=== PATIENT | female | born 1995 | race Hispanic/Latino ===

== ENCOUNTER 2018-12-01 11:45 | Emergency (ER) | payer SELFPAY ==
[2018-12-01 12:29] VITALS: BP 110/73
--- NOTE | 2018-12-01 12:29 | Event Note ---
ED Screening Note ED Screening Note: pt presents with substernal CP that began a week ago hurts with laughing, coughing, movement no SOB LNMP: november 16 non smoker This initial assessment/diagnostic orders/clinical plan/treatment(s) is/are subject to change based on patients health status, clinical progression and re- assessment by fellow clinical providers in the ED. Further treatment and workup at subsequent clinical providers discretion. Patient/guardian urged not to elope from the ED as their condition may be serious if not clinically assessed and managed. Initial orders include: EKG, CXR, urine preg
--- NOTE | 2018-12-01 13:55 | XRay Report ---
CHEST 2 VIEWS INDICATION: CP. COMPARISON: None. FINDINGS: Support devices: None. Heart: Normal. Pulmonary vasculature: Normal. Lungs/pleura: Normally expanded and clear. No pleural effusion. No pneumothorax. Additional findings: None. IMPRESSION: 1. Normal chest. Signer Name: Rigoberto Martinez MD Signed: 12/01/2018 1:50 PM Workstation Name: [id number]
[2018-12-01 14:25] LABS: HCG Qualitative,Urine Negative (Negative)
--- NOTE | 2018-12-01 14:28 | Emergency Department Report ---
ED Chest Pain HPI - General Chief Complaint: Chest Pain Stated Complaint: CHEST PAIN Time Seen by Provider: 12/01/18 12:27 Source: patient Mode of arrival: Ambulatory Limitations: No Limitations - History of Present Illness Initial Comments: 22-year-old -[place] female presents to the emergency department with a complaint of midsternal chest pain that has been going on for the past week. It is a sharp pain that worsens with movement and with respirations. She denies any back pain, fever, nausea, lower extremity swelling, vomiting or diaphoresis. She denies any trauma or injury. She has not taken anything for her symptoms prior to presentation. She is a tobacco smoker but denies any illicit drug use. No primary care physician. - Related Data Previous Rx's Medication Instructions Recorded Last Taken Type Ibuprofen [Motrin 600 MG tab] 600 mg PO Q8H PRN #20 tablet 12/01/18 Unknown Rx Allergies Allergy/AdvReac Type Severity Reaction Status Date / Time No Known Allergies Allergy Unverified 12/01/18 11:48 Heart Score - HEART Score History: Slightly suspicious EKG: Normal Age: < 45 Risk factors: 1-2 risk factors Troponin: < normal limit HEART Score: 1 - Critical Actions Critical Actions: 0-3 pts:0.9-1.7%risk of adverse cardiac event.Candidate for discharge ED Review of Systems ROS: Stated complaint: CHEST PAIN Other details as noted in HPI Comment: All other systems reviewed and negative Constitutional: denies: chills, fever Respiratory: denies: cough, wheezing Cardiovascular: chest pain. denies: edema Gastrointestinal: denies: nausea, vomiting Musculoskeletal: denies: back pain, arthralgia ED Past Medical Hx - Past Medical History Previous Medical History?: No - Surgical History Past Surgical History?: No - Social History Smoking Status: Never Smoker Substance Use Type: Alcohol - Medications Home Medications: Home Medications Medication Instructions Recorded Confirmed Last Taken Type Ibuprofen [Motrin 600 MG tab] 600 mg PO Q8H PRN #20 tablet 12/01/18 Unknown Rx ED Physical Exam - General Limitations: No Limitations - Other Other exam information: GENERAL: The patient is well-developed well-nourished. HENT: Normocephalic. Atraumatic. Patient has moist mucous membranes. EYES: Extraocular motions are intact. NECK: Supple. Trachea is midline. CHEST/LUNGS: Clear to auscultation. There is no respiratory distress noted. Chest pain is reproducible to palpation of the chest wall. No crepitus or deformity. HEART/CARDIOVASCULAR: Regular. There is no tachycardia. There is no murmur. ABDOMEN: Abdomen is soft, nontender. Patient has normal bowel sounds. There is no abdominal distention. SKIN: Skin is warm and dry. NEURO: The patient is awake, alert, and oriented. The patient is cooperative. The patient has no focal neurologic deficits. Normal speech. MUSCULOSKELETAL: There is no tenderness or deformity. There is no evidence of acute injury. ED Course Vital Signs 12/01/18 12:27 Temperature 98.7 F Pulse Rate 79 Respiratory 16 Rate Blood Pressure 110/73 O2 Sat by Pulse 100 Oximetry PHANI score - Phani Score Age > 65: (0) No Aspirin use within the Past 7 Days: (0) No 3 or more CAD Risk Factors: (0) No 2 or more Angina events in past 24 hrs: (0) No Known CAD with more than 50% Stenosis: (0) No Elevated Cardiac Markers: (0) No ST Deviation Greater than 0.5mm: (0) No PAHNI Score: 0 ED Medical Decision Making - EKG Data -: EKG Interpreted by Me EKG shows normal: sinus rhythm, axis, intervals, QRS complexes, ST-T waves Rate: normal - EKG Data When compared to previous EKG there are: previous EKG unavailable Interpretation: normal EKG - Radiology Data Radiology results: image reviewed interpreted by me: Chest x-ray does not show any acute process. There are no pleural effusions, obvious pneumonia and there is no pneumothorax. - Medical Decision Making Patient presents with a one-week history of some midsternal chest pain that is reproducible to palpation and also worsens with certain movements of her torso. EKG does not show any signs of ST elevation ND, ischemia or dysrhythmia. Chest x-ray did not show any pneumothorax, pleural effusions, pneumonia, focal consolidation, or any other acute process. This all appears most consistent with some costochondritis or noncardiac chest pain. She was given a shot of Toradol. She is low on the heart score and PHANI score. Vital signs stable throughout her ED course including being afebrile. She is low on the well's score criteria and negative on the pulmonary embolism rule out criteria. Patient was given some information regarding costochondritis and a prescription for some anti-inflammatories. She has been given referrals for primary care. She will return to the ER with any worsening of her symptoms or any acute distress. - Differential Diagnosis costochondritis, pneumonia, ND, dysrhythmia Critical Care Time: No Critical care attestation.: If time is entered above; I have spent that time in minutes in the direct care of this critically ill patient, excluding procedure time. ED Disposition Clinical Impression: Costochondritis Chest pain Qualifiers: Chest pain type: unspecified Qualified Code(s): R07.9 - Chest pain, unspecified Disposition: - TO HOME OR SELFCARE Is pt being admited?: No Condition: Stable Instructions: Costochondritis (ED) Additional Instructions: Please follow-up with a primary care physician in the next few days. Return to the emergency Department with any worsening of your symptoms or any acute distress. Prescriptions: Ibuprofen [Motrin 600 MG tab] 600 mg PO Q8H PRN #20 tablet PRN Reason: Pain Referrals: BK HARRISON MD [Staff Physician] - 2-3 Days [facility] [Outside] - 2-3 Days Forms: Work/School Release Form(ED) Time of Disposition: 14:41
[2018-12-01] MEDS ORDERED: TORADOL IM ONE (14:40)
== END 2018-12-01 15:00 | disposition home or self-care (01) ==
LOC: ED 11:45
DX: M94.0 Chondrocostal junction syndrome [Tietze] (principal); F17.200 Nicotine dependence, unspecified, uncomplicated; Z79.899 Other long term (current) drug therapy
CPT/HCPCS: 71046; 81025; 93005; 93010; 96372; 99283; J1885